=== PATIENT | female | born 1975 | race Hispanic/Latino ===

== ENCOUNTER 2018-09-29 12:19 | Emergency (ER) | payer SELFPAY ==
[~2018-09-29] VITALS: Ht 147.3 cm; Wt 72.6 kg
--- OUTSIDE RECORDS SUMMARY | 2018-09-29 12:21 | XMS REPORT ---
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 Allergies, Adverse Reactions, Alerts Allergy Name Allergy Type Status Severity Reaction(s) Onset Date Inactive Date Treating Clinician Comments No Known Allergies DA Active U 2018-09-29 00:00:00 No Known Allergies DA Active U 2017-02-19 00:00:00 Medications This patient has no known medications.
[2018-09-29] MEDS ORDERED: DEXAMETHASONE SOD PHOS 10 MG/1 ML VIAL IM NR (13:00)
[2018-09-29] MEDS ORDERED: FAMOTIDINE 20 MG TAB PO NR (13:00)
== END 2018-09-29 13:43 | disposition home or self-care (01) ==
LOC: ER 12:19
DX: L23.7 Allergic contact dermatitis due to plants, except food (principal)
CPT/HCPCS: 99283; J1100

== ENCOUNTER 2019-07-08 12:06 | Emergency (ER) | payer SELFPAY ==
[~2019-07-08] VITALS: Ht 152.4 cm; Wt 68.0 kg
--- NOTE | 2019-07-08 12:20 | NUR ---
SEEN BY FAINA GARRETT DURING TRIAGE
[2019-07-08 12:52] LABS: BILIRUBIN,URINE SMALL (NEGATIVE); CLARITY,URINE SL CLOUDY (CLEAR); COLOR,URINE RED (YELLOW); KETONES,URINE TRACE (NEGATIVE); LEUKOCYTE ESTERASE ,URINE TRACE (NEGATIVE); NITRITE,URINE NEGATIVE (NEGATIVE); PROTEIN,URINE DIPSTICK 2+ (NEGATIVE); URINE UROBILINOGEN 1 mg/dL (0.2 - 1)
[2019-07-08 12:54] LABS: PREGNANCY TEST, URINE NEGATIVE (NEGATIVE)
[2019-07-08 13:07] LABS: RBC,URINE >50 /HPF (0-5); WBC,URINE (MAN) >50 /HPF (0-5)
[2019-07-08 13:08] LABS: BACTERIA,URINE MODERATE /HPF; EPITHELIAL CELLS,URINE MODERATE /LPF; MUCUS,URINE FEW (RARE)
[2019-07-08] MEDS ORDERED: CEFTRIAXONE SOD 1 GM VIAL IM ONE (13:30)
[2019-07-08] MEDS ORDERED: HYDROCODONE/APAP 5MG-325MG TAB PO ONE (13:30)
[2019-07-08] MEDS ORDERED: KETOROLAC TROMETHAMINE 10 MG TAB PO ONE (13:30)
--- NOTE | 2019-07-08 13:41 | Diagnostic Imaging Report ---
Exam: KUB - 2 views Indication: Abdominal Pain Comparison: None Findings: Nonobstructive bowel gas pattern. No free air. No abnormal calcifications. The osseous structures appear unremarkable. Partially visualized lung bases are clear. Impression: No acute radiographic abnormality. Signed by: Nate Rosen MD on 07/08/2019 1:38 PM
[2019-07-08 14:28] VITALS: BP 103/59
== END 2019-07-08 14:38 | disposition home or self-care (01) ==
LOC: ER 12:06
DX: R10.30 Lower abdominal pain, unspecified (principal); R11.2 Nausea with vomiting, unspecified; N30.91 Cystitis, unspecified with hematuria
CPT/HCPCS: 74018; 81001; 81025; 99283; J0696